=== PATIENT | female | born 1975 ===

== ENCOUNTER 2017-11-28 12:33 | Outpatient (CLI) | payer OTHER | END 2017-11-28 12:46 | disposition home or self-care (01) | LOC: MAMO-SONO 12:33 | DX: D25.1 Intramural leiomyoma of uterus (principal) ==

== ENCOUNTER 2018-07-31 13:09 | Outpatient (CLI) | payer OTHER | END 2018-07-31 13:16 | disposition home or self-care (01) | LOC: EKG 13:09 | DX: Z01.818 Encounter for other preprocedural examination (principal) ==

== ENCOUNTER 2018-08-05 13:15 | Inpatient (IN) | payer OTHER ==
[~2018-08-05] VITALS: Ht 167.6 cm; Wt 81.6 kg
[2018-08-11] MEDS ORDERED: ULTRAM50 MG PO (15:01)
[2018-08-11] MEDS ORDERED: GAS-X125 MG PO (15:01)
[2018-08-11] MEDS ORDERED: DOCUSATE SODIU100 MG PO (15:01)
== END 2018-08-11 15:50 | disposition home or self-care (01) | DRG 743 ==
LOC: O/R 08-08 06:00 → SURH 08-08 06:00
PROVIDERS: ADMIT Obstetrics & Gynecology
PROC: 0UT00ZZ Resection of Right Ovary, Open Approach (ICD-10-PCS; 2018-08-08)
PROC: 0UT70ZZ Resection of Bilateral Fallopian Tubes, Open Approach (ICD-10-PCS; 2018-08-08)
PROC: 0UQG0ZZ Repair Vagina, Open Approach (ICD-10-PCS; 2018-08-08)
PROC: 0WJG0ZZ Inspection of Peritoneal Cavity, Open Approach (ICD-10-PCS; 2018-08-08)
PROC: 0UT90ZZ Resection of Uterus, Open Approach (ICD-10-PCS; principal; 2018-08-08 16:15)
PROC: 0UJD4ZZ Inspection of Uterus and Cervix, Percutaneous Endoscopic Approach (ICD-10-PCS; 2018-08-08 16:15)
DX: D25.1 Intramural leiomyoma of uterus (principal); D25.2 Subserosal leiomyoma of uterus; N83.01 Follicular cyst of right ovary; N93.8 Other specified abnormal uterine and vaginal bleeding; N72 Inflammatory disease of cervix uteri; N83.8 Other noninflammatory disorders of ovary, fallopian tube and broad ligament